=== PATIENT | female | born 2000 | race Caucasian/White ===

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

== ENCOUNTER 2020-04-03 11:37 | Emergency (ER) | payer MEDICAID ==
[~2020-04-03] VITALS: Ht 147.3 cm; Wt 61.0 kg
[2020-04-03 11:51] VITALS: BP 132/72
== END 2020-04-03 12:48 | disposition home or self-care (01) ==
LOC: ER 11:37
DX: H66.91 Otitis media, unspecified, right ear (principal)
CPT/HCPCS: 99283

== ENCOUNTER 2020-08-04 00:38 | Emergency (ER) | payer MEDICAID ==
[~2020-08-04] VITALS: Ht 147.3 cm; Wt 59.0 kg
[2020-08-04] MEDS ORDERED: ACETAMINOPHEN 325MG TABLET PO STA (01:13)
[2020-08-04] MEDS ORDERED: SODIUM CHLORIDE 0.9% 1000ML BAG (SEPSIS BOLUS) IV ONE (01:15)
[2020-08-04 01:36] LABS: BASOPHILS % 0.6 % (0.0-2.0); EOSINOPHILS % 0.3 % (0.0-5.0); HEMATOCRIT. 43.3 % (36.0-48.0); HEMOGLOBIN. 14.7 g/dL (12.0-16.0); LYMPHOCYTES % 22.3 % (20.0-50.0); MEAN CORPUSCULAR HEMOGLOBIN 31.7 pg (28.0-32.0); MEAN CORPUSCULAR VOLUME 93.2 fL (81.0-99.0); MEAN PLATELET VOLUME 9.9 fl (7.4-10.4); NEUTROPHILS % 67.8 % (40.0-76.0); PLATELET 299 x1000/uL (130-400); RED BLOOD CELL COUNT 4.65 mill/uL (4.2-5.4); RED CELL DISTRIBUTION WIDTH 13.9 % (11.6-14.6)
[2020-08-04 01:38] LABS: CHLORIDE 107 mEq/L (98-107)
[2020-08-04 01:42] LABS: ETHANOL BLOOD < 10 mg/dL
[2020-08-04 01:47] LABS: CREATINE KINASE 85 IU/L (26-192)
[2020-08-04 02:26] LABS: CLARITY URINE CLEAR (CLEAR); COLOR URINE YELLOW (YELLOW); KETONES URINE NEGATIVE (NEGATIVE); LEUKOCYTE ESTERASE URINE TRACE (NEGATIVE); NITRITE URINE NEGATIVE (NEGATIVE); OCCULT BLOOD URINE NEGATIVE (NEGATIVE); PROTEIN URINE NEGATIVE (NEGATIVE); SPECIFIC GRAVITY URINE 1.004 (1.005-1.030); UROBILINOGEN URINE 0.2 E.U./dL (0.2-1.0)
[2020-08-04 02:40] LABS: PROTHROMBIN TIME 10.7 sec (9.6-11.0)
[2020-08-04 02:42] LABS: *AMPHETAMINES SCREEN URINE NEGATIVE (NEGATIVE); *BARBITURATES SCREEN URINE NEGATIVE (NEGATIVE); *BENZODIAZEPINES SCREEN URINE NEGATIVE (NEGATIVE); *COCAINE SCREEN URINE NEGATIVE (NEGATIVE); METHADONE URINE SCREEN NEGATIVE (NEGATIVE); OPIATES URINE SCREEN NEGATIVE (NEGATIVE)
[2020-08-04 02:43] LABS: PHENCYCLIDINE URINE SCREEN NEGATIVE (NEGATIVE)
[2020-08-04 02:45] LABS: CANNABINOID URINE SCREEN PRESUMTIVE POSITIVE (NEGATIVE)
[2020-08-04] MEDS ORDERED: CEFTRIAXONE 1 G PREMIX 50 ML IV SCH (04:15)
[2020-08-04] MEDS ORDERED: IOHEXOL-350 100 ML BOTTLE ONE (06:24)
[2020-08-04] MEDS ORDERED: CEPH500T MT (07:33)
[2020-08-04 08:00] VITALS: BP 103/60
== END 2020-08-04 09:33 | disposition home or self-care (01) ==
LOC: ER 00:38 → CANBEDREQ 08:32 → ER 09:33
DX: N39.0 Urinary tract infection, site not specified (principal); R50.9 Fever, unspecified; Z20.822 Contact with and (suspected) exposure to COVID-19
CPT/HCPCS: 36415; 71045; 71275; 80053; 80305; 80320; 81003; 81025; 82550; 83605; 83615; 84145; 85025; 85384; 85610; 87040; 87077; 87086; 87804; 93005; 96361; 96365; 99285; C9803; J0696; J7030; Q9967; U0003; Z7610; G0480

== ENCOUNTER 2020-08-18 06:24 | Emergency (ER) | payer MEDICAID ==
[~2020-08-18] VITALS: Ht 144.8 cm; Wt 59.0 kg
[~2020-08-18 06:24] MED LIST changes: +CEPH500T MT
[2020-08-18] MEDS ORDERED: IBUP-2029 MT (07:00)
[2020-08-18] MEDS: PEN G BENZ/PEN G PROCAINE CR 1.2 MMU/2 ML IM ONE (07:00)
[2020-08-18] MEDS: PENICILLIN G BENZATHINE 1,200,000 UNITS/2ML SYR IM ONE (07:18)
[2020-08-18 07:19] VITALS: BP 120/59
[2020-08-18] MEDS: IBUPROFEN 600MG TABLET PO ONE (07:19)
[2020-08-18] MEDS: PREDNISONE 20MG TABLET PO ONE (07:19)
== END 2020-08-18 07:40 | disposition home or self-care (01) ==
LOC: ER 06:24
DX: J03.90 Acute tonsillitis, unspecified (principal)
CPT/HCPCS: 87070; 87430; 96372; 99283; J0561; J7512; J0558

== ENCOUNTER 2021-03-18 12:32 | Emergency (ER) | payer MEDICAID ==
[~2021-03-18] VITALS: Ht 144.8 cm; Wt 59.0 kg
[~2021-03-18 12:32] MED LIST changes: +IBUP-2029 MT
[2021-03-18] MEDS ORDERED: NEOM10DR11 RIGHT EAR (16:19)
[2021-03-18 16:23] VITALS: BP 112/86
== END 2021-03-18 16:24 | disposition home or self-care (01) ==
LOC: ER 12:32
DX: H60.91 Unspecified otitis externa, right ear (principal); H61.23 Impacted cerumen, bilateral
CPT/HCPCS: 99283